=== PATIENT | female | born 1965 | race American Indian/Alaskan Native ===

== ENCOUNTER 2018-05-09 11:41 | Emergency (ER) | payer OTHER ==
--- NOTE | 2018-05-09 12:44 | ED PDOC ---
HPI: Hypertension/Hypotension Time Seen by Provider: 05/09/18 11:53 Chief Complaint (Nursing): High Blood Pressure Chief Complaint (Provider): High Blood Pressure History Per: Patient History/Exam Limitations: no limitations Onset/Duration Of Symptoms: Hrs Current Symptoms Are (Timing): Still Present Associated Symptoms: Headache Additional Complaint(s): Milagro Josue is a 52 year old female with no a past medical history of gastritis who is presenting to the ED for evaluation of high blood pressure onset prior to arrival. Patient states that she has had congestion for the past week and took Mucinex sinus and yesterday she took her last dose with Ibuprofen. She reports that shortly after she blew her nose and noted little blood from right nostril. Patient states [facility] where they told her that her blood pressure was high and referred her to the ED. She admits that she usually doesnt take the bus because it makes her anxious and claustrophobic but she states that she took the bus [facility]. Patient also reports that she felt more anxious after she was told her blood pressure was high. She also adds that she has a mild headache which she has had before and also complains of epigastric pain associated with nausea. PMD: none provided Past Medical History Reviewed: Historical Data, Nursing Documentation, Vital Signs Vital Signs: Last Vital Signs Temp 97.5 F L 05/09/18 11:42 Pulse 83 05/09/18 11:42 Resp 18 05/09/18 11:42 BP 203/125 H 05/09/18 11:42 Pulse Ox 100 05/09/18 11:42 - Medical History PMH: Gastritis - Surgical History Surgical History: No Surg Hx - Family History Family History: States: Unknown Family Hx - Social History Current smoker - smoking cessation education provided: No Alcohol: None Drugs: Denies - Home Medications Home Medications: Ambulatory Orders Medication Instructions Recorded Loratadine [Claritin] 10 mg PO DAILY PRN #10 tab 05/09/18 - Allergies Allergies/Adverse Reactions: Allergies Allergy/AdvReac Type Severity Reaction Status Date / Time No Known Allergies Allergy Verified 05/09/18 11:42 Review of Systems ROS Statement: Except As Marked, All Systems Reviewed And Found Negative ENT: Positive for: Nose Congestion Gastrointestinal: Positive for: Nausea, Abdominal Pain Neurological: Positive for: Headache Physical Exam - Reviewed Nursing Documentation Reviewed: Yes Vital Signs Reviewed: Yes - Physical Exam Appears: Positive for: Non-toxic, No Acute Distress Head Exam: Positive for: ATRAUMATIC, NORMAL INSPECTION, NORMOCEPHALIC Skin: Positive for: Normal Color, Warm, DRY Eye Exam: Positive for: EOMI, Normal appearance, PERRL ENT: Positive for: Normal ENT Inspection Neck: Positive for: Normal, Painless ROM Cardiovascular/Chest: Positive for: Regular Rate, Rhythm. Negative for: Murmur Respiratory: Positive for: Normal Breath Sounds. Negative for: Respiratory Distress Gastrointestinal/Abdominal: Positive for: Soft, Tenderness (mild epigastric tendernesss) Back: Positive for: Normal Inspection. Negative for: L CVA Tenderness, R CVA Tenderness Extremity: Positive for: Normal ROM. Negative for: Deformity, Swelling Neurologic/Psych: Positive for: Alert, Oriented. Negative for: Motor/Sensory Deficits - Laboratory Results Result Diagrams: 05/09/18 12:51 05/09/18 12:51 - ECG O2 Sat by Pulse Oximetry: 100 (RA) Pulse Ox Interpretation: Normal Medical Decision Making Medical Decision Making: Time: 12:09 Plan: --CT Head --CT sinuses --EKG --CMP --CBC --ED Urine --ED Urine Dipstick --Coags --Pepcid 20 mg IVP --Zofran 4 mg IV --Urinalysis --Ultrasound Abdomen Accession No. : [id number] Patient Name / ID : VLADIMIR TATE / [id number] Exam Date : 05/09/2018 13:22:39 ( Approved ) Study Comment : Sex / Age : F / 52Y Creator : Carmella Vazquez MD Dictator : Carmella Vazquez MD Tobacco Buyer : Clinical Administrator : Carmella Vazquez MD Approver2 : Report Date : 05/09/2018 13:36:24 My Comment : Date of service: 05/09/2018 PROCEDURE: CT HEAD WITHOUT CONTRAST. HISTORY: Headache COMPARISON: None available. TECHNIQUE: Axial computed tomography images were obtained through the head/brain without intravenous contrast. Radiation dose: Total exam DLP = 810.44 mGy-cm. This CT exam was performed using one or more of the following dose reduction techniques: Automated exposure control, adjustment of the mA and/or kV according to patient size, and/or use of iterative reconstruction technique. FINDINGS: HEMORRHAGE: No intracranial hemorrhage. BRAIN: Boudreaux-white matter differentiation is preserved. There is no mass, mass effect or abnormal extra-axial fluid collection. There is no territorial infarction. The midline sagittal structures are normal. VENTRICLES: The ventricles are normal in size, shape and configuration. CALVARIUM: There is no calvarial fracture or extracranial soft tissue swelling. PARANASAL SINUSES: Predominantly clear. MASTOID AIR CELLS: Predominantly clear. OTHER FINDINGS: None. IMPRESSION: No acute intracranial abnormality. Accession No. : [id number] Patient Name / ID : VLADIMIR TATE / [id number] Exam Date : 05/09/2018 13:24:25 ( Approved ) Study Comment : Sex / Age : F / 52Y Creator : Carmella Vazquez MD Dictator : Carmella Vazquez MD Tobacco Buyer : Clinical Administrator : Carmella Vazquez MD Approver2 : Report Date : 05/09/2018 13:45:26 My Comment : Date of service: 05/09/2018 PROCEDURE: CT SINUSES WITHOUT CONTRAST HISTORY: Facial pain COMPARISON: None available. TECHNIQUE: Contiguous axial CT images of the paranasal sinuses were obtained. Coronal and sagittal reformats were generated. Radiation dose: Total exam DLP = 558.52 mGy-cm. This CT exam was performed using one or more of the following dose reduction te chniques: Automated exposure control, adjustment of the mA and/or kV according to patient size, and/or use of iterative reconstruction technique. FINDINGS: FRONTAL SINUSES: The right frontal sinus is well developed and well aerated without mucosal thickening or fluid. The left frontal sinus is hypoplastic without mucosal thickening or fluid. ETHMOID SINUSES: Well developed and well aerated without mucosal thickening or fluid. There is mild mucosal thickening in the left anterior ethmoid air cell. SPHENOID SINUSES: Well developed. There is polypoid mucosal thickening in the left sphenoid chamber. MAXILLARY SINUSES: Well developed and well aerated without fluid. There is minimal mucosal thickening in the left maxillary sinus. SINUS DRAINAGE: Osteomeatal complexes, frontal recesses and sphenoethmoid recesses clear. NASAL SEPTUM: There are bilateral middle turbinate janell bullosa, left larger than right with mild deviation of nasal septum to the right. MASS: None. SKULL BASE: Unremarkable. TEMPORAL BONES: Middle ears and mastoid grossly unremarkable. OTHER FINDINGS: None. IMPRESSION: Mild chronic sinusitis in the left sphenoid, anterior ethmoid and maxillary sinuses. Mild deviation of the nasal septum to the right. Accession No. : [id number] Patient Name / ID : VLADIMIR TATE / [id number] Exam Date : 05/09/2018 14:53:46 ( Approved ) Study Comment : Sex / Age : F / 52Y Creator : Carmella Vazquez MD Dictator : Carmella Vazquez MD Tobacco Buyer : Clinical Administrator : Carmella Vazquez MD Approver2 : Report Date : 05/09/2018 15:53:11 My Comment : Date of service: 05/09/2018 HISTORY: Epigastric pain COMPARISON: None. TECHNIQUE: Grayscale imaging was performed. FINDINGS: LIVER: Measures 14.9 cm in length. Normal echogenicity of the liver parenchyma. No mass. No intrahepatic bile duct dilatation. GALLBLADDER: There are no gallstones, wall thickening or pericholecystic fluid. The sonographic Landaverde's sign is negative. COMMON BILE DUCT: Measures 2.6 mm. No stones. No dilatation. PANCREAS: Unremarkable as visualized. No mass. No ductal dilatation. RIGHT KIDNEY: Measures 10.3 cm in length. Normal echogenicity. No calculus, mass, or hydronephrosis. AORTA: No aneurysmal dilatation. IVC: Unremarkable. OTHER FINDINGS: None . IMPRESSION: No cholelithiasis or biliary dilatation. 16:35 REPEAT BP: 168/93 Pt states she has been taking Mucinex D continuously for past 6 days. Discussed results with patient, advised discontinue and avoid all meds with deco ngestants. Will d/c home with Rx Claritin. States she will monitor BP at home. - Scribe Attestation: Documented by, Harika Pace acting as a scribe for Rocio Gallegos MD. Provider Scribe Attestation: All medical record entries made by the Scribe were at my direction and personally dictated by me. I have reviewed the chart and agree that the record accurately reflects my personal performance of the history, physical exam, medical decision making, and the department course for this patient. I have also personally directed, reviewed, and agree with the discharge instructions and disposition. Disposition - Clinical Impression Clinical Impression: Elevated blood pressure, situational, Adverse effect of decongestant - Disposition Referrals: Ky Villeda MD [Staff Provider] - John Thornton MD [Staff Provider] - Thomas Dao MD [Staff Provider] - Disposition: Routine/Home Disposition Time: 17:20 Condition: IMPROVED Prescriptions: Loratadine [Claritin] 10 mg PO DAILY PRN #10 tab PRN Reason: Allergy Symptoms Instructions: High Blood Pressure in Adults, Prehypertension, Adverse Drug Reactions, Adult Forms: [employer] ([place])
[2018-05-09 13:12] LABS: BASO % 0.5 % (0.0-2.0); EOS % 0.5 % (0.0-4.0); LYMPH # 0.9 K/uL (1.0-4.3); LYMPH % 17.9 % (20.0-40.0); MEAN CELL VOLUME 78.1 fl (81.0-99.0); MEAN CORPUSCULAR HEMOGLOBIN 25.5 pg (27.0-31.0); MEAN CORPUSCULAR HGB CONC 32.7 g/dL (33.0-37.0); MEAN PLATELET VOLUME 9.5 fl (7.2-11.7); MONO # 0.3 K/uL (0.0-0.8); MONO % 5.4 % (0.0-10.0); NEUT # 3.6 K/uL (1.8-7.0); NEUT % 75.7 % (50.0-75.0); NRBC % 0.3 % (0.0-0.0); RBC 5.47 Mil/uL (3.80-5.20); RED CELL DISTRIBUTION WIDTH 17.6 % (11.5-14.5); WHITE BLOOD COUNT 4.8 K/uL (4.8-10.8)
[2018-05-09 13:15] LABS: PROTHROMBIN TIME 11.3 Seconds (9.8-13.1)
[2018-05-09 13:18] LABS: PARTIAL THROMBOPLASTIN TIME 33.3 Seconds (25.6-37.1)
[2018-05-09 13:33] LABS: BLOOD UREA NITROGEN 12 mg/dl (7-17); CALCIUM 9.1 mg/dL (8.4-10.2); GFR NON-AFRICAN AMERICAN > 60
[2018-05-09 13:34] LABS: ALBUMIN 4.7 g/dL (3.5-5.0); ALT/SGPT 42 U/L (9-52); AST/SGOT 60 U/L (14-36)
--- NOTE | 2018-05-09 13:40 | CT ---
Date of service: 05/09/2018 PROCEDURE: CT HEAD WITHOUT CONTRAST. HISTORY: Headache COMPARISON: None available. TECHNIQUE: Axial computed tomography images were obtained through the head/brain without intravenous contrast. Radiation dose: Total exam DLP = 810.44 mGy-cm. This CT exam was performed using one or more of the following dose reduction techniques: Automated exposure control, adjustment of the mA and/or kV according to patient size, and/or use of iterative reconstruction technique. FINDINGS: HEMORRHAGE: No intracranial hemorrhage. BRAIN: Boudreaux-white matter differentiation is preserved. There is no mass, mass effect or abnormal extra-axial fluid collection. There is no territorial infarction. The midline sagittal structures are normal. VENTRICLES: The ventricles are normal in size, shape and configuration. CALVARIUM: There is no calvarial fracture or extracranial soft tissue swelling. PARANASAL SINUSES: Predominantly clear. MASTOID AIR CELLS: Predominantly clear. OTHER FINDINGS: None. IMPRESSION: No acute intracranial abnormality.
--- NOTE | 2018-05-09 13:49 | CT ---
Date of service: 05/09/2018 PROCEDURE: CT SINUSES WITHOUT CONTRAST HISTORY: Facial pain COMPARISON: None available. TECHNIQUE: Contiguous axial CT images of the paranasal sinuses were obtained. Coronal and sagittal reformats were generated. Radiation dose: Total exam DLP = 558.52 mGy-cm. This CT exam was performed using one or more of the following dose reduction techniques: Automated exposure control, adjustment of the mA and/or kV according to patient size, and/or use of iterative reconstruction technique. FINDINGS: FRONTAL SINUSES: The right frontal sinus is well developed and well aerated without mucosal thickening or fluid. The left frontal sinus is hypoplastic without mucosal thickening or fluid. ETHMOID SINUSES: Well developed and well aerated without mucosal thickening or fluid. There is mild mucosal thickening in the left anterior ethmoid air cell. SPHENOID SINUSES: Well developed. There is polypoid mucosal thickening in the left sphenoid chamber. MAXILLARY SINUSES: Well developed and well aerated without fluid. There is minimal mucosal thickening in the left maxillary sinus. SINUS DRAINAGE: Osteomeatal complexes, frontal recesses and sphenoethmoid recesses clear. NASAL SEPTUM: There are bilateral middle turbinate janell bullosa, left larger than right with mild deviation of nasal septum to the right. MASS: None. SKULL BASE: Unremarkable. TEMPORAL BONES: Middle ears and mastoid grossly unremarkable. OTHER FINDINGS: None. IMPRESSION: Mild chronic sinusitis in the left sphenoid, anterior ethmoid and maxillary sinuses. Mild deviation of the nasal septum to the right.
--- NOTE | 2018-05-09 15:57 | US ---
Date of service: 05/09/2018 HISTORY: Epigastric pain COMPARISON: None. TECHNIQUE: Grayscale imaging was performed. FINDINGS: LIVER: Measures 14.9 cm in length. Normal echogenicity of the liver parenchyma. No mass. No intrahepatic bile duct dilatation. GALLBLADDER: There are no gallstones, wall thickening or pericholecystic fluid. The sonographic Landaverde's sign is negative. COMMON BILE DUCT: Measures 2.6 mm. No stones. No dilatation. PANCREAS: Unremarkable as visualized. No mass. No ductal dilatation. RIGHT KIDNEY: Measures 10.3 cm in length. Normal echogenicity. No calculus, mass, or hydronephrosis. AORTA: No aneurysmal dilatation. IVC: Unremarkable. OTHER FINDINGS: None . IMPRESSION: No cholelithiasis or biliary dilatation.
[2018-05-09 16:18] VITALS: RESP 18; TEMP 97.6
[2018-05-09 16:39] VITALS: O2SAT 100
[2018-05-09 17:20] VITALS: BP 168/93; PULSE 88
--- NOTE | 2018-05-09 17:54 | CARD ---
APPROVED REPORT Date of service: 05/09/2018 EKG Measurement Heart [id number] <Conclusion> Normal sinus rhythm Minimal voltage criteria for LVH, may be normal variant Prolonged QT Abnormal ECG
== END 2018-05-09 17:20 | disposition home or self-care (01) ==
LOC: H.ER 11:41
DX: I10 Essential (primary) hypertension (principal); J32.9 Chronic sinusitis, unspecified; J34.2 Deviated nasal septum
CPT/HCPCS: 70450; 70486; 76705; 80053; 85025; 85610; 85730; 93005; 96374; 99284; J2405